=== PATIENT | female | born 1995 | race Caucasian/White ===

== ENCOUNTER 2017-02-08 23:04 | Outpatient (CLI) | payer OTHER ==
[~2017-02-08 23:04] MED LIST: COLACE 100MG C100 MG PO
[2017-04-12] MEDS ORDERED: ZOFRAN8 MG PO (19:52)
== END 2017-02-09 00:40 | disposition home or self-care (01) ==
LOC: GENOP 23:04
DX: O99.89 Other specified diseases and conditions complicating pregnancy, childbirth and the puerperium (principal); R10.9 Unspecified abdominal pain; Z3A.30 30 weeks gestation of pregnancy
CPT/HCPCS: 81001; 82731; G0463

== ENCOUNTER → 2017-03-20 | Outpatient (CLI) | payer OTHER ==
[~2017-03-20] MED LIST changes: +ZOFRAN8 MG PO
== END ==
LOC: GENOP 21:00
DX: O36.8130 Decreased fetal movements, third trimester, not applicable or unspecified (principal); Z3A.30 30 weeks gestation of pregnancy
CPT/HCPCS: 59025; 81001

== ENCOUNTER 2017-04-15 00:26 | Inpatient (IN) | payer OTHER ==
[~2017-04-15] VITALS: Ht 162.6 cm; Wt 73.5 kg
[2017-04-15 01:25] LABS: HEMOGLOBIN 11.4 gm/dl (12.3-15.3); RED BLOOD COUNT 3.73 M/UL (4.00-5.10); WHITE BLOOD COUNT 18.2 K/UL (4.5-11.0)
[2017-04-16 03:17] LABS: HEMOGLOBIN 11.1 gm/dl (12.3-15.3)
== END 2017-04-16 14:37 | disposition home or self-care (01) | DRG 775 ==
LOC: GENOP 00:26 → OB 01:16
PROVIDERS: ADMIT Obstetrics & Gynecology
PROC: 10E0XZZ Delivery of Products of Conception, External Approach (ICD-10-PCS; principal; 2017-04-15)
PROC: 3E0234Z Introduction of Serum, Toxoid and Vaccine into Muscle, Percutaneous Approach (ICD-10-PCS; 2017-04-15)
DX: O99.824 Streptococcus B carrier state complicating childbirth (principal); Z3A.39 39 weeks gestation of pregnancy; Z37.0 Single live birth; O99.334 Smoking (tobacco) complicating childbirth; F17.210 Nicotine dependence, cigarettes, uncomplicated; Z88.0 Allergy status to penicillin; Z88.8 Allergy status to other drugs, medicaments and biological substances; Z80.3 Family history of malignant neoplasm of breast; Z80.1 Family history of malignant neoplasm of trachea, bronchus and lung; Z83.3 Family history of diabetes mellitus; Z82.49 Family history of ischemic heart disease and other diseases of the circulatory system; Z23 Encounter for immunization
CPT/HCPCS: 36415; 51702; 81001; 82800; 85014; 85018; 85025; 90715; 96361; 96367; 96374; 96375; C9113; J2405; J2550; J2590; J2795; J3010; J3430; J7050; J7120

== ENCOUNTER 2021-02-01 12:36 | Emergency (ER) | payer OTHER ==
[~2021-02-01 12:36] MED LIST changes: +AUGMENTIN 875-1 EACH PO; +DOXYCYCLINE HY100 MG PO; +IBUPROFEN600 MG PO; +NORCO 5-325 TA1 EACH PO; +PRENATAL + DHA1 EAC1 PO; +PRENATAL VITAM1 EAC5 PO; +ZOFRAN4 MG PO
[2021-02-01 13:23] LABS: HEMOGLOBIN 14.3 gm/dl (12.3-15.3); RED BLOOD COUNT 4.65 M/UL (4.00-5.10); WHITE BLOOD COUNT 17.1 K/UL (4.5-11.0)
[2021-02-01 13:45] LABS: BUN/CREATININE RATIO 10 (0-10)
[2021-02-01] MEDS ORDERED: MECLIZINE HCL25 MG PO (16:13)
[2021-02-01] MEDS ORDERED: ONDANSETRON ODT4 MG SL (16:13)
== END 2021-02-01 16:30 | disposition home or self-care (01) ==
LOC: ER1 12:36
PROVIDERS: Physician Assistant
DX: J02.9 Acute pharyngitis, unspecified (principal); D72.829 Elevated white blood cell count, unspecified; R42 Dizziness and giddiness
CPT/HCPCS: 71046; 80053; 81001; 84703; 85025; 86403; 87081; 87880; 93005; 96374; 99284; J2405; J7030

== ENCOUNTER 2021-02-06 17:51 | Emergency (ER) | payer OTHER ==
[~2021-02-06 17:51] MED LIST changes: +MECLIZINE HCL25 MG PO; +ONDANSETRON ODT4 MG SL
[2021-02-06 19:58] LABS: BUN/CREATININE RATIO 9 (0-10)
[2021-02-06 20:04] LABS: HEMOGLOBIN 14.7 gm/dl (12.3-15.3); RED BLOOD COUNT 4.8 M/UL (4.00-5.10); WHITE BLOOD COUNT 16.8 K/UL (4.5-11.0)
[2021-02-06] MEDS ORDERED: ZOFRAN4 MG PO (21:03)
== END 2021-02-06 20:44 | disposition home or self-care (01) ==
LOC: ER1 17:51
PROVIDERS: Preventive Medicine Occupational Medicine
DX: K80.50 Calculus of bile duct without cholangitis or cholecystitis without obstruction (principal); F17.200 Nicotine dependence, unspecified, uncomplicated
CPT/HCPCS: 80053; 80307; 81001; 84703; 85025; 85652; 86140; 87086; 96374; 96375; 99284; J1170; J2405; Q9967

== ENCOUNTER → 2021-03-14 | Outpatient (CLI) | payer OTHER ==
[~2021-03-14] MED LIST changes: +CEPHALEXIN500 MG PO; +PEPCID20 MG PO; +PHENERGAN 25 MG25 M1 PO
== END ==
LOC: NM 03-11 09:00 → US 03-11 10:00 → EXRD 08:00 → NM 09:00 → US 09:44
DX: R10.11 Right upper quadrant pain (principal)
CPT/HCPCS: 76705; 78226; A9537

== ENCOUNTER 2021-04-11 18:43 | Emergency (ER) | payer OTHER ==
[~2021-04-11 18:43] MED LIST changes: -CEPHALEXIN500 MG PO; -PEPCID20 MG PO; -PHENERGAN 25 MG25 M1 PO
[2021-04-11 19:51] LABS: HEMOGLOBIN 13.9 gm/dl (12.3-15.3); RED BLOOD COUNT 4.43 M/UL (4.00-5.10); WHITE BLOOD COUNT 13.9 K/UL (4.5-11.0)
[2021-04-11 20:09] LABS: BUN/CREATININE RATIO 11 (0-10)
[2021-04-11] MEDS ORDERED: PHENERGAN 25 MG25 M1 PO (20:59)
[2021-04-11] MEDS ORDERED: PEPCID20 MG PO (20:59)
== END 2021-04-11 21:15 | disposition home or self-care (01) ==
LOC: ER1 18:43
PROVIDERS: Physician Assistant
DX: O99.891 Other specified diseases and conditions complicating pregnancy (principal); R10.9 Unspecified abdominal pain; R11.2 Nausea with vomiting, unspecified; R19.7 Diarrhea, unspecified; O99.331 Smoking (tobacco) complicating pregnancy, first trimester; F17.200 Nicotine dependence, unspecified, uncomplicated; Z3A.01 Less than 8 weeks gestation of pregnancy; Z88.2 Allergy status to sulfonamides
CPT/HCPCS: 80053; 81001; 83690; 84702; 85025; 99284

== ENCOUNTER 2021-04-18 12:18 | Emergency (ER) | payer OTHER ==
[~2021-04-18 12:18] MED LIST changes: +PEPCID20 MG PO; +PHENERGAN 25 MG25 M1 PO
[2021-04-18] MEDS ORDERED: CEPHALEXIN500 MG PO (17:14)
== END 2021-04-18 12:50 | disposition left against medical advice (07) ==
LOC: ER1 12:18
DX: Z53.21 Procedure and treatment not carried out due to patient leaving prior to being seen by health care provider (principal)

== ENCOUNTER 2021-04-18 13:14 | Emergency (ER) | payer OTHER ==
[2021-04-18 14:29] LABS: HEMOGLOBIN 13.2 gm/dl (12.3-15.3); RED BLOOD COUNT 4.27 M/UL (4.00-5.10); WHITE BLOOD COUNT 13.1 K/UL (4.5-11.0)
[2021-04-18 14:49] LABS: BUN/CREATININE RATIO 9 (0-10)
[2021-04-18] MEDS ORDERED: CEPHALEXIN500 MG PO (17:14)
== END 2021-04-18 17:35 | disposition home or self-care (01) ==
LOC: ER1 13:14
PROVIDERS: Physician Assistant
DX: O20.0 Threatened abortion (principal); O99.331 Smoking (tobacco) complicating pregnancy, first trimester; F17.200 Nicotine dependence, unspecified, uncomplicated; Z3A.01 Less than 8 weeks gestation of pregnancy
CPT/HCPCS: 76817; 80053; 81001; 84702; 85025; 99284

== ENCOUNTER → 2021-04-20 | Outpatient (CLI) | payer OTHER ==
[~2021-04-20] MED LIST changes: +CEPHALEXIN500 MG PO
== END ==
LOC: LAB 12:34
DX: O20.0 Threatened abortion (principal)
CPT/HCPCS: 36415; 84702

== ENCOUNTER 2021-07-22 23:10 | Emergency (ER) | payer OTHER ==
[2021-07-23 00:18] LABS: RED BLOOD COUNT 3.71 M/UL (4.00-5.10); WHITE BLOOD COUNT 14.6 K/UL (4.5-11.0)
[2021-07-23 00:35] LABS: BUN/CREATININE RATIO 9 (0-10)
== END 2021-07-23 01:30 | disposition home or self-care (01) ==
LOC: ER1 23:10
PROVIDERS: Family Medicine
DX: O20.9 Hemorrhage in early pregnancy, unspecified (principal); O99.331 Smoking (tobacco) complicating pregnancy, first trimester; F17.210 Nicotine dependence, cigarettes, uncomplicated; Z3A.18 18 weeks gestation of pregnancy
CPT/HCPCS: 80053; 81001; 85025; 85610; 85730; 99284

== ENCOUNTER 2021-11-18 16:30 | Outpatient (CLI) | payer OTHER | END 2021-11-18 19:24 | disposition home or self-care (01) | LOC: GENOP 16:30 | DX: O99.891 Other specified diseases and conditions complicating pregnancy (principal); R10.9 Unspecified abdominal pain; M54.50 Low back pain, unspecified; O99.333 Smoking (tobacco) complicating pregnancy, third trimester; F17.210 Nicotine dependence, cigarettes, uncomplicated; Z3A.35 35 weeks gestation of pregnancy | CPT/HCPCS: 81001; G0463 ==

== ENCOUNTER 2021-11-27 11:31 | Outpatient (CLI) | payer OTHER | END 2021-11-27 13:54 | disposition home or self-care (01) | LOC: GENOP 11:31 | DX: O99.891 Other specified diseases and conditions complicating pregnancy (principal); N89.8 Other specified noninflammatory disorders of vagina; R10.30 Lower abdominal pain, unspecified; R10.2 Pelvic and perineal pain; Z3A.36 36 weeks gestation of pregnancy | CPT/HCPCS: 81001; 83518; G0463 ==

== ENCOUNTER 2021-12-16 05:32 | Inpatient (IN) | payer OTHER ==
[~2021-12-16] VITALS: Ht 162.6 cm; Wt 79.4 kg
[2021-12-16 06:29] LABS: HEMOGLOBIN 11.5 gm/dl (12.3-15.3); RED BLOOD COUNT 3.83 M/UL (4.00-5.10)
[2021-12-16 06:36] LABS: WHITE BLOOD COUNT 21.9 K/UL (4.5-11.0)
[2021-12-16] MEDS ORDERED: HYDROCODON-ACE1 EAC4 PO (19:15)
[2021-12-16] MEDS ORDERED: COLACE 100MG C100 MG PO (19:15)
[2021-12-16] MEDS ORDERED: IBUPROFEN800 MG PO (19:15)
[2021-12-17 06:28] LABS: HEMOGLOBIN 10.8 gm/dl (12.3-15.3)
== END 2021-12-17 22:15 | disposition home or self-care (01) | DRG 807 ==
LOC: OB 05:32
PROVIDERS: ADMIT Obstetrics & Gynecology
PROC: 10E0XZZ Delivery of Products of Conception, External Approach (ICD-10-PCS; principal; 2021-12-16)
PROC: 10907ZC Drainage of Amniotic Fluid, Therapeutic from Products of Conception, Via Natural or Artificial Opening (ICD-10-PCS; 2021-12-16)
PROC: 3E033VJ Introduction of Other Hormone into Peripheral Vein, Percutaneous Approach (ICD-10-PCS; 2021-12-16)
PROC: 4A1HXCZ Monitoring of Products of Conception, Cardiac Rate, External Approach (ICD-10-PCS; 2021-12-16)
DX: O99.334 Smoking (tobacco) complicating childbirth (principal); Z37.0 Single live birth; F17.210 Nicotine dependence, cigarettes, uncomplicated; Z20.822 Contact with and (suspected) exposure to COVID-19; Z3A.39 39 weeks gestation of pregnancy; Z88.2 Allergy status to sulfonamides
CPT/HCPCS: 36415; 81001; 82800; 85014; 85018; 85025; J2590; J7120; U0002